=== PATIENT | female | born 1960 | race Caucasian/White ===

== ENCOUNTER 2021-06-23 07:12 | Day surgery (SDC) | payer BC ==
[~2021-06-23 07:12] MED LIST: Lactated Ringers 1,000 ML IV SCH; Sodium Chloride 0.9% 10 ML SDV IV PRN; Sodium Chloride 0.9% 10 ML Syringe FLUSH PRN; Sodium Chloride 0.9% 2.5 ML Syringe FLUSH PRN
--- NOTE | 2021-06-23 08:00 | PCM.PREANE ---
Preanesthetic Assessment - Procedure Proposed Procedure: Colonoscopy - Anesthesia/Transfusion/Family Hx Anesthesia History: Prior Anesthesia Without Reaction Family History of Anesthesia Reaction: No Transfusion History: No Prior Transfusion(s) - Review of Systems General: No Symptoms Pulmonary: No Symptoms (Remote smoking Hx >40 years ago) Cardiovascular: No Symptoms (HTN) Gastrointestinal: No Symptoms Neurological: No Symptoms Other: Reports: None - Physical Assessment NPO Status Date: 06/21/21 NPO Status Time: 19:00 (Solids, >8Hr Liq) Vital Signs: Last Vital Signs Temp 98.1 F 06/23/21 07:35 Pulse 69 06/23/21 07:35 Resp 16 06/23/21 07:35 BP 129/84 06/23/21 07:35 Pulse Ox 99 06/23/21 07:35 Height: 5 ft 2 in Weight: 97.976 kg ASA Class: 3 Mental Status: Alert & Oriented x3 Airway Class: Mallampati = 3 Dentition: Reports: Normal Dentition Thyro-Mental Finger Breadths: 0 Mouth Opening Finger Breadths: 0 ROM/Head Extension: Full Lungs: Clear to Auscultation, Normal Respiratory Effort Cardiovascular: Regular Rate, Regular Rhythm - Allergies Allergies/Adverse Reactions: Allergies Allergy/AdvReac Type Severity Reaction Status Date / Time bee venom protein (honey bee) Allergy Anaphylactic Verified 06/17/21 12:36 Shock - Acknowledgements Anesthesia Type Planned: General Anesthesia Pt an Appropriate Candidate for the Planned Anesthesia: Yes Alternatives and Risks of Anesthesia Discussed w Pt/Guardian: Yes Pt/Guardian Understands and Agrees with Anesthesia Plan: Yes PreAnesthesia Questionnaire HEENT History: Reports: Other (See Below) Other HEENT History: wears glasses Cardiovascular History: Reports: Hypertension, Other (See Below) Other Cardiovascular History: her mother had a hx of post-op blood clots Respiratory History: Reports: None Gastrointestinal History: Reports: Other (See Below) Other Gastrointestinal History: she has a large umbilical hernia Genitourinary History: Reports: None 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: Musculoskeletal History: Reports: None Neurological History: Reports: Vertigo Psychiatric History: Reports: None Endocrine/Metabolic History: Reports: Obesity/BMI 30+ Hematologic History: Reports: None Immunologic History: Reports: None Oncologic (Cancer) History: Reports: None Dermatologic History: Reports: None - Past Surgical History Head Surgeries/Procedures: Reports: None HEENT Surgical History: Reports: None Cardiovascular Surgical History: Reports: None Respiratory Surgical History: Reports: None GI Surgical History: Reports: Colonoscopy Female Surgical History: Reports: Tubal Ligation Endocrine Surgical History: Reports: None Neurological Surgical History: Reports: None Musculoskeletal Surgical History: Reports: None Oncologic Surgical History: Reports: None Dermatological Surgical History: Reports: None - SUBSTANCE USE Tobacco Use Status *Q: Never Tobacco User Recreational Drug Use History: No - HOME MEDS Home Medications: Home Meds Cholecalciferol (Vitamin D3) [Vitamin D3] 1,000 unit PO DAILY 06/17/21 [History] Cyanocobalamin (Vitamin B12) [Vitamin B12] 1,000 mcg PO DAILY 06/17/21 [History] EPINEPHrine [Epipen] 0.3 mg IM ASDIRECTED PRN 06/17/21 [History] Potassium Chloride 10 meq PO DAILY 06/17/21 [History] Triamterene/Hydrochlorothiazid [Triamterene-HCTZ 37.5-25 MG] 1 cap PO DAILY 06/17/21 [History] - CURRENT (IN HOUSE) MEDS Current Meds: Current Medications Lactated Ringer's (Ringers, Lactated) 1,000 mls @ 125 mls/hr IV ASDIRECTED REGAN Last Admin: 06/23/21 07:43 Dose: 125 mls/hr Documented by: Sodium Chloride (Sodium Chloride 0.9% 10 Ml Syringe) 10 ml FLUSH ASDIRECTED PRN PRN Reason: Keep Vein Open Sodium Chloride (Sodium Chloride 0.9% 2.5 Ml Syringe) 2.5 ml FLUSH ASDIRECTED PRN PRN Reason: Keep Vein Open Sodium Chloride (Sodium Chloride 0.9% 10 Ml Syringe) 10 ml FLUSH ASDIRECTED PRN PRN Reason: Keep Vein Open Sodium Chloride (Sodium Chloride 0.9% 2.5 Ml Syringe) 2.5 ml FLUSH ASDIRECTED PRN PRN Reason: Keep Vein Open Sodium Chloride (Sodium Chloride 0.9% 10 Ml Sdv) 10 ml IV ASDIRECTED PRN PRN Reason: IV Use
[2021-06-23] MEDS ORDERED: propofoL 50 ML ONE (08:07)
[2021-06-23] MEDS ORDERED: fentaNYL 100 MCG/2 ML SDV ONE (08:11)
--- NOTE | 2021-06-23 09:16 | PCM.POSTAN ---
POST ANESTHESIA ASSESSMENT - MENTAL STATUS Mental Status: Alert, Oriented - VITAL SIGNS Vital Signs: Last Vital Signs Temp 98.1 F 06/23/21 07:35 Pulse 69 06/23/21 07:35 Resp 16 06/23/21 07:35 BP 129/84 06/23/21 07:35 Pulse Ox 99 06/23/21 07:35 - RESPIRATORY Respiratory Status: Respiratory Rate WNL, Airway Patent, O2 Saturation Stable - CARDIOVASCULAR CV Status: Pulse Rate WNL, Blood Pressure Stable - GASTROINTESTINAL GI Status: No Symptoms - PAIN Pain Score: 0 - POST OP HYDRATION Hydration Status: Adequate & Stable
--- NOTE | 2021-06-23 09:22 | PCM48HPAN ---
Post Anesthesia Note - EVALUATION WITHIN 48HRS OF ANESTHETIC Vital Signs in Normal Range: Yes Patient Participated in Evaluation: Yes Respiratory Function Stable: Yes Airway Patent: Yes Cardiovascular Function Stable: Yes Hydration Status Stable: Yes Pain Control Satisfactory: Yes Nausea and Vomiting Control Satisfactory: Yes Mental Status Recovered: Yes Vital Signs: Last Vital Signs Temp 97.3 F 06/23/21 09:11 Pulse 71 06/23/21 09:16 Resp 14 06/23/21 09:16 BP 100/58 L 06/23/21 09:16 Pulse Ox 99 06/23/21 09:16 - COMMENTS/OBSERVATIONS Free Text/Narrative:: Pt doing well post-op. VSS. No apparent anesthetic complications. Dr. Juan Carlos Palmer
--- NOTE | 2021-06-23 09:59 | PCM.OPNOTE ---
- General Post-Op/Procedure Note Date of Surgery/Procedure: 06/23/21 Operative Procedure(s): Screening colonoscopy Findings: Grade IV hemorrhoids Pre Op Diagnosis: Screening colonoscopy Post-Op Diagnosis: Grade IV hemorrhoids Anesthesia Technique: PRASAD Primary Surgeon: Tiffany Emerson Condition: Stable Free Text/Narrative:: Intake & Output 06/22/21 06/23/21 06/23/21 22:59 06:59 14:59 Intake Total 1050 Balance 1050
--- NOTE | 2021-06-24 20:49 | OR ---
SURGEON: TIFFANY EMERSON MD DATE OF PROCEDURE: 06/23/2021 PREOPERATIVE DIAGNOSIS: Screening colonoscopy. POSTOPERATIVE DIAGNOSIS: Grade 4 hemorrhoids. PROCEDURE PERFORMED: Screening colonoscopy. PRIMARY SURGEON: Tiffany Emerson MD ANESTHESIA: MAC. INSTRUMENT USED: Olympus colonoscope. EXTENT OF EXAM: To the cecum. PREPARATION: Good. LIMITATIONS: None. INDICATIONS FOR EXAMINATION: The patient is a 60-year-old female who presents to clinic for screening colonoscopy. I explained the procedure, expected perioperative course, and the risks. She verbalized understanding and wishes to proceed. PROCEDURE IN DETAIL: The patient was brought in to the endoscopy suite and placed in the left lateral decubitus position. A time-out was completed verifying the patient's name, age, date of , allergies, and procedure to be performed. Monitored anesthesia care was induced and continuous oxygen was provided via nasal cannula throughout the procedure. After adequate sedation was achieved, a digital rectal exam was performed. The patient was found to have grade 4 hemorrhoids. A well- lubricated colonoscope was inserted in the rectum and advanced under direct visualization to the level of cecum. The cecum was identified by both visual and anatomic landmarks. A photograph was taken of the cecal cap, however, I was unable to retroflex the scope within the cecum due to looping of the scope more proximally. The scope was then fully withdrawn while examining the color, texture, anatomy, and integrity of the mucosa from the cecum to the anal canal. The patient was found to have normal appearing colonic mucosa. The scope was then brought into the rectum and retroflexed to allow visualization of the anal canal opening. Again, I noted enlarged hemorrhoidal tissue. A photograph was taken. The scope was then straightened out and fully withdrawn. The cecum to anus time was 8 minutes. The patient tolerated the procedure well and was transferred to the PACU in stable condition. ENDOSCOPIC DIAGNOSIS: Grade 4 hemorrhoids. RECOMMENDATIONS: I visited with the patient regarding her hemorrhoidal disease in the PACU. She is aware of these and they are not causing her current issues. She will come back to see me in clinic if they start to become bothersome. Otherwise, I will see the patient back in clinic in 10 years for repeat colonoscopy. RACHNA / TRAE /[id number]
== END 2021-06-23 09:48 | disposition home or self-care (01) ==
LOC: MW.SDS 07:12
PROVIDERS: ATTEND Surgery
DX: Z12.11 Encounter for screening for malignant neoplasm of colon (principal); K64.3 Fourth degree hemorrhoids; F32.A Depression, unspecified; E78.00 Pure hypercholesterolemia, unspecified; I10 Essential (primary) hypertension; E66.9 Obesity, unspecified; E87.6 Hypokalemia; E53.8 Deficiency of other specified B group vitamins; K42.9 Umbilical hernia without obstruction or gangrene; Z91.030 Bee allergy status; Z79.899 Other long term (current) drug therapy; Z98.890 Other specified postprocedural states
CPT/HCPCS: 45378; J2704; J3010; J7120; 00812

== ENCOUNTER 2021-08-18 06:26 | Day surgery (SDC) | payer BC ==
[~2021-08-18 06:26] MED LIST changes: -Sodium Chloride 0.9% 10 ML SDV IV PRN; +Sodium Chloride 0.9% 20 ML SDV IV PRN; +ceFAZolin 2 GM in Premix Bag 1 BAG IV ONE
[2021-08-18] MEDS ORDERED: Octyl 2-Cyanoacrylate 1 Tube ONE (07:20)
[2021-08-18] MEDS ORDERED: Bupivacaine 0.5% 10 ML SDV ONE (07:20)
--- NOTE | 2021-08-18 07:31 | PCM.PREANE ---
Preanesthetic Assessment - Procedure Proposed Procedure: umbilical hernia repair - Anesthesia/Transfusion/Family Hx Anesthesia History: Prior Anesthesia Without Reaction Transfusion History: No Prior Transfusion(s) - Review of Systems General: No Symptoms Pulmonary: No Symptoms Cardiovascular: No Symptoms Gastrointestinal: No Symptoms Neurological: No Symptoms Other: Reports: None - Physical Assessment NPO Status Date: 08/17/21 NPO Status Time: 22:00 Vital Signs: Last Vital Signs Temp 97.5 F 08/18/21 06:30 Pulse 78 08/18/21 06:30 Resp 15 08/18/21 06:30 BP 139/86 08/18/21 06:30 Pulse Ox 97 08/18/21 06:30 Height: 5 ft 2 in Weight: 97.976 kg ASA Class: 2 Mental Status: Alert & Oriented x3 Airway Class: Mallampati = 2 Dentition: Reports: Normal Dentition Thyro-Mental Finger Breadths: 3 Mouth Opening Finger Breadths: 3 ROM/Head Extension: Limited/Partial (limited neck extension) Lungs: Clear to Auscultation, Normal Respiratory Effort Cardiovascular: Regular Rate, Regular Rhythm - Allergies Allergies/Adverse Reactions: Allergies Allergy/AdvReac Type Severity Reaction Status Date / Time bee venom protein (honey bee) Allergy Anaphylactic Verified 08/12/21 09:35 Shock - Acknowledgements Anesthesia Type Planned: General Anesthesia Pt an Appropriate Candidate for the Planned Anesthesia: Yes Alternatives and Risks of Anesthesia Discussed w Pt/Guardian: Yes Pt/Guardian Understands and Agrees with Anesthesia Plan: Yes PreAnesthesia Questionnaire HEENT History: Reports: Other (See Below) Other HEENT History: wears glasses Cardiovascular History: Reports: Hypertension, Other (See Below) Other Cardiovascular History: her mother had a hx of post-op blood clots Respiratory History: Reports: None Gastrointestinal History: Reports: Hemorrhoids Genitourinary History: Reports: 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 History: Reports: None Neurological History: Reports: Vertigo Psychiatric History: Reports: None Endocrine/Metabolic History: Reports: Obesity/BMI 30+ Hematologic History: Reports: None Immunologic History: Reports: None Oncologic (Cancer) History: Reports: None Dermatologic History: Reports: None - Past Surgical History Head Surgeries/Procedures: Reports: None HEENT Surgical History: Reports: None Cardiovascular Surgical History: Reports: None Respiratory Surgical History: Reports: None GI Surgical History: Reports: Colonoscopy Female Surgical History: Reports: Tubal Ligation Endocrine Surgical History: Reports: None Neurological Surgical History: Reports: None Musculoskeletal Surgical History: Reports: None Oncologic Surgical History: Reports: None Dermatological Surgical History: Reports: None - SUBSTANCE USE Tobacco Use Status *Q: Never Tobacco User Recreational Drug Use History: No - HOME MEDS Home Medications: Home Meds Cholecalciferol (Vitamin D3) [Vitamin D3] 1,000 unit PO DAILY 06/17/21 [History] Cyanocobalamin (Vitamin B12) [Vitamin B12] 1,000 mcg PO DAILY 06/17/21 [History] EPINEPHrine [Epipen] 0.3 mg IM ASDIRECTED PRN 06/17/21 [History] Potassium Chloride 10 meq PO DAILY 06/17/21 [History] Triamterene/Hydrochlorothiazid [Triamterene-HCTZ 37.5-25 MG] 1 cap PO DAILY 06/17/21 [History] - CURRENT (IN HOUSE) MEDS Current Meds: Current Medications Lactated Ringer's (Ringers, Lactated) 1,000 mls @ 125 mls/hr IV ASDIRECTED REGAN Last Admin: 08/18/21 06:53 Dose: 125 mls/hr Documented by: Sodium Chloride (Sodium Chloride 0.9% 2.5 Ml Syringe) 2.5 ml FLUSH ASDIRECTED PRN PRN Reason: Keep Vein Open Sodium Chloride (Sodium Chloride 0.9% 20 Ml Sdv) 10 ml IV ASDIRECTED PRN PRN Reason: IV Use Sodium Chloride (Sodium Chloride 0.9% 10 Ml Syringe) 10 ml FLUSH ASDIRECTED PRN PRN Reason: Keep Vein Open Discontinued Medications Bupivacaine HCl (Bupivacaine 0.5% 10 Ml Sdv) Confirm Administered Dose 20 ml .ROUTE .STK-MED ONE Stop: 08/18/21 07:21 Cefazolin Sodium/Dextrose 2 gm (/ Premix) 50 mls @ 100 mls/hr IV ONETIME ONE Stop: 08/15/21 10:35 Octyl Cyanoacrylate (Octyl 2-Cyanoacrylate 1 Tube) Confirm Administered Dose 1 applic .ROUTE .STK-MED ONE Stop: 08/18/21 07:21
[2021-08-18] MEDS ORDERED: HYDROmorphone 1 MG/ML Syringe IVPUSH PRN (07:36)
[2021-08-18] MEDS ORDERED: Metoclopramide 10 MG/2 ML SDV IVPUSH PRN (07:36)
[2021-08-18] MEDS ORDERED: Naloxone 0.4 MG/ML SDV IVPUSH PRN (07:36)
[2021-08-18] MEDS ORDERED: Albuterol 0.083% 2.5 MG/3 ML Neb Soln NEB PRN (07:36)
[2021-08-18] MEDS ORDERED: Ondansetron 4 MG/2 ML SDV IVPUSH PRN (07:36)
[2021-08-18] MEDS ORDERED: Morphine 4 MG/ML VIAL IVPUSH PRN (07:36)
[2021-08-18] MEDS ORDERED: fentaNYL 100 MCG/2 ML SDV IVPUSH PRN (07:36)
[2021-08-18] MEDS ORDERED: propofoL 100 ML ONE (08:07)
[2021-08-18] MEDS ORDERED: Lidocaine 2% Jelly 30 ML Tube ONE (08:10)
[2021-08-18] MEDS ORDERED: Lidocaine 2% 100 MG/5 ML Syringe ONE (08:10)
[2021-08-18] MEDS ORDERED: fentaNYL 100 MCG/2 ML SDV ONE (08:36)
[2021-08-18] MEDS ORDERED: Ropivacaine 0.5% 5 MG/ML 30 ML SDV ONE (08:58)
[2021-08-18] MEDS ORDERED: Lidocaine 1% with EPINEPHrine 1:100,000 20 ML MDV ONE (08:59)
[2021-08-18] MEDS ORDERED: Dexamethasone 4 MG/ML 5 ML MDV ONE (10:12)
[2021-08-18] MEDS ORDERED: Rocuronium Bromide 50 MG/5 ML Syringe ONE (10:12)
[2021-08-18] MEDS ORDERED: Metoclopramide 10 MG/2 ML SDV ONE (10:12)
[2021-08-18] MEDS ORDERED: Sugammadex Sodium 200 MG/2 ML VIAL ONE (10:12)
[2021-08-18] MEDS ORDERED: ceFAZolin 1 GM Vial ONE ×2 (10:12)
[2021-08-18] MEDS ORDERED: Esmolol 100 MG/10 ML SDV ONE (10:18)
--- NOTE | 2021-08-18 10:18 | PCM.SN.2 ---
- Free Text/Narrative Note: Anesthesia Start: 953 Anesthesia Stop: 955 Following a block time out and patient consent, BILATERAL rectus sheath blocks were placed under US guidance using a 6 inch 20g echogenic block needle. 30 cc of 0.5% Naropin and 20 cc of 2% lido with epi was injected in 5cc increments. Procedure performed at request of surgeon for post op analgesia. No complications. Ronnell Amaro MD
[2021-08-18] MEDS ORDERED: Metoprolol Tartrate 5 MG/5 ML SDV ONE (10:25)
[2021-08-18] MEDS ORDERED: Ketorolac 30 MG/ML SDV ONE (10:36)
--- NOTE | 2021-08-18 10:56 | PCM.POSTAN ---
POST ANESTHESIA ASSESSMENT - MENTAL STATUS Mental Status: Alert, Oriented - VITAL SIGNS Vital Signs: Last Vital Signs Temp 97.5 F 08/18/21 06:30 Pulse 78 08/18/21 06:30 Resp 15 08/18/21 06:30 BP 139/86 08/18/21 06:30 Pulse Ox 97 08/18/21 06:30 - RESPIRATORY Respiratory Status: Respiratory Rate WNL, Airway Patent, O2 Saturation Stable - CARDIOVASCULAR CV Status: Pulse Rate WNL, Blood Pressure Stable - GASTROINTESTINAL GI Status: No Symptoms - POST OP HYDRATION Hydration Status: Adequate & Stable
--- NOTE | 2021-08-18 10:57 | PCM48HPAN ---
Post Anesthesia Note - EVALUATION WITHIN 48HRS OF ANESTHETIC Vital Signs in Normal Range: Yes Patient Participated in Evaluation: Yes Respiratory Function Stable: Yes Airway Patent: Yes Cardiovascular Function Stable: Yes Hydration Status Stable: Yes Pain Control Satisfactory: Yes Nausea and Vomiting Control Satisfactory: Yes Mental Status Recovered: Yes Vital Signs: Last Vital Signs Temp 97.5 F 08/18/21 06:30 Pulse 78 08/18/21 06:30 Resp 15 08/18/21 06:30 BP 139/86 08/18/21 06:30 Pulse Ox 97 08/18/21 06:30
--- NOTE | 2021-08-18 10:58 | PCM.OPNOTE ---
- General Post-Op/Procedure Note Date of Surgery/Procedure: 08/18/21 Operative Procedure(s): Umbilical hernia repair Findings: Large hernia sack containing omentum. Fascial defect 1 cm in size Pre Op Diagnosis: Umbilical hernia, incarcerated Post-Op Diagnosis: same Anesthesia Technique: General ET Tube Primary Surgeon: Tiffany Emerson Fluid Replacement, Intraop: 2,000 EBL in mLs: 5 Condition: Good
--- NOTE | 2021-08-18 15:58 | OR ---
SURGEON: TIFFANY EMERSON MD DATE OF PROCEDURE: 08/18/2021 PREOPERATIVE DIAGNOSIS: Umbilical hernia. POSTOPERATIVE DIAGNOSIS: Umbilical hernia. PROCEDURE PERFORMED: Umbilical hernia repair. PRIMARY SURGEON: Tiffany Emerson MD ANESTHESIA: General. FLUIDS: 2000 mL crystalloid. ESTIMATED BLOOD LOSS: 5 mL. FINDINGS: Large hernia sac containing omentum. 1 cm x 1 cm hernia defect at the umbilicus. COMPLICATIONS: None. INDICATIONS: The patient is a 61-year-old female who presented with a very large umbilical hernia. CT scan showed a large hernia sac measuring up to 7 cm in size with a small fascial defect next to the umbilicus. The hernia sac contained omentum and was nonreducible. Given the size of this hernia and the small opening, I recommended that the patient undergo repair to prevent strangulation in the future. I explained the procedure, expected perioperative course, and the risks. She verbalized understanding and wishes to proceed. PROCEDURE IN DETAIL: The patient was brought in to the OR and placed on the OR table in supine position. A time-out was completed verifying the patient's name, age, date of , allergies, and procedure to be performed. Anesthesia was induced and the abdomen was prepped and draped in usual standard fashion. I anesthetized around the umbilicus with 0.5% Marcaine plain. A 15-blade was used to make an incision around the left side of the umbilicus. Cautery was then used to dissect down to the level of subcutaneous fat. I immediately encountered a very large hernia sac. Using blunt dissection, I was able to free this hernia sac from the surrounding subcutaneous fat all the way down to the fascia. The hernia sac appeared to be baseball-sized and was associated with a small fascial defect right next to the umbilicus. Using sharp dissection, I cleared away any attachments of the hernia sac to the surrounding fascia. I then got into the hernia sac. The hernia sac itself contained omentum. I tried to reduce this back into the abdomen, but was unable to do so. A Harmonic scalpel was brought into the field and I transected across the opening of the hernia defect across the omentum. Great care was taken to ensure that the proximal cut edge of the omentum was not bleeding before it was reduced back into the abdomen. The omentum was then passed off the field. Using a Harmonic scalpel, I then transected the hernia sac at the base of the fascial defect as well. These specimens were then sent together labeled as omentum and hernia sac. I then measured the fascial defect. It only measured 1 x 1 cm in size. Given the small size, the decision was made to repair this primarily with sutures. I closed the fascial defect with interrupted 0 Ethibond sutures. A vasovagal maneuver was performed and the repair appeared to be intact. I irrigated the wound and suctioned this out. I then closed the subcutaneous fat with layers of interrupted 3-0 Vicryl suture. I closed the skin with a running 4-0 Monocryl stitch. Dermabond and sterile dressings were applied. The patient tolerated the procedure well, was extubated, and taken to PACU in stable condition. All counts were complete and correct at the end of the case. RACHNA / TRAE /[id number]
== END 2021-08-18 13:04 | disposition home or self-care (01) ==
LOC: MW.SDS 06:26
PROVIDERS: ATTEND Surgery
DX: K42.9 Umbilical hernia without obstruction or gangrene (principal); E87.6 Hypokalemia; E78.00 Pure hypercholesterolemia, unspecified; I10 Essential (primary) hypertension; E66.9 Obesity, unspecified; Z91.030 Bee allergy status; Z79.899 Other long term (current) drug therapy; Z98.890 Other specified postprocedural states
CPT/HCPCS: 49585; A9270; J0690; J1100; J1885; J2370; J2704; J2765; J2795; J3010; J3490; J7120